=== PATIENT | male | born 1970 | race African-American/Black ===

== ENCOUNTER 2024-10-15 18:07 | Emergency (ER) | payer OTHER ==
[~2024-10-15] VITALS: Ht 175.3 cm; Wt 95.0 kg
[2024-10-15 18:10] VITALS: O2SAT 99
[2024-10-15 18:11] VITALS: BP 124/78; PULSE 87; RESP 16; TEMP 37.1; O2SAT 98
[2024-10-15 19:09] LABS: BASOPHILS % 0.4 % (0.0-2.0); HEMATOCRIT. 46.2 % (42.0-52.0); HEMOGLOBIN. 15.8 g/dL (14.0-18.0); LYMPHOCYTES % 24.3 % (20.0-50.0); MEAN CORPUSCULAR HEMOGLOBIN 30.2 pg (28.0-32.0); MEAN CORPUSCULAR HGB CONC 34.3 g/dL (31.0-37.0); MEAN CORPUSCULAR VOLUME 87.9 fL (80.0-94.0); MEAN PLATELET VOLUME 7.6 fl (7.4-10.4); MONOCYTES % 7.2 % (2.0-8.0); NEUTROPHILS % 66.1 % (40.0-76.0); PLATELET 379 x1000/uL (130-400); RED BLOOD CELL COUNT 5.25 mill/uL (4.7-6.1); RED CELL DISTRIBUTION WIDTH 11.9 % (11.6-14.6); WHITE BLOOD COUNT 12.5 x1000/uL (4.5-11.0)
[2024-10-15 19:18] LABS: CHLORIDE 104 mEq/L (98-107); POTASSIUM 3.8 mEq/L (3.5-5.1); SODIUM 139 mEq/L (136-145)
[2024-10-15 19:19] LABS: CALCIUM 9.7 mg/dL (8.7-10.4); CARBON DIOXIDE 31 mEq/L (21-32)
[2024-10-15 19:24] LABS: CREATININE 1.2 mg/dL (0.6-1.3); GLUCOSE 132 mg/dL (70-105); UREA NITROGEN BLOOD 16 mg/dL (9-23)
[2024-10-15] MEDS ORDERED: BO1 TP (19:25)
[2024-10-15] MEDS ORDERED: CEPH500C2 MT (19:29)
[2024-10-15] MEDS ORDERED: SULF1TAB48 MT (19:30)
== END 2024-10-15 19:36 | disposition home or self-care (01) ==
LOC: ER 18:07
DX: L03.818 Cellulitis of other sites (principal); Z79.899 Other long term (current) drug therapy
CPT/HCPCS: 36415; 80048; 85025; 99283